=== PATIENT | female | born 1970 | race Caucasian/White ===

== ENCOUNTER 2018-05-02 19:40 | Emergency (ER) | payer OTHER ==
[~2018-05-02] VITALS: Ht 167.6 cm; Wt 86.6 kg
[2018-05-02] MEDS ORDERED: BENADRYL25 MG PO (19:59)
[2018-05-02 21:58] VITALS: BP 164/102
== END 2018-05-02 21:59 | disposition home or self-care (01) ==
LOC: M.ERS 19:40
DX: G43.909 Migraine, unspecified, not intractable, without status migrainosus (principal); F41.9 Anxiety disorder, unspecified; J44.9 Chronic obstructive pulmonary disease, unspecified; F17.210 Nicotine dependence, cigarettes, uncomplicated; Z88.1 Allergy status to other antibiotic agents; Z88.8 Allergy status to other drugs, medicaments and biological substances

== ENCOUNTER 2018-05-08 15:02 | Emergency (ER) | payer OTHER ==
[~2018-05-08] VITALS: Ht 167.6 cm; Wt 86.6 kg
[~2018-05-08 15:02] MED LIST: BENADRYL25 MG PO
[2018-05-08 15:36] LABS: URINE BILIRUBIN NEGATIVE (Negative); URINE BLOOD NEGATIVE (Negative); URINE CLARITY CLEAR; URINE COLOR YELLOW; URINE GLUCOSE-RANDOM NEGATIVE (Negative); URINE KETONES NEGATIVE (Negative); URINE LEUKOCYTES-REFLEX NEGATIVE (Negative); URINE NITRITE-REFLEX NEGATIVE (Negative); URINE PROTEIN NEGATIVE (Negative); URINE SPECIFIC GRAVITY >= 1.030 (1.005-1.030); URINE UROBILINOGEN 0.2 E.U./dl (0.2-1.0)
[2018-05-08] MEDS ORDERED: NORCO 5-325 TA1 EACH PO (15:41)
[2018-05-08 15:57] VITALS: BP 133/97
== END 2018-05-08 16:08 | disposition home or self-care (01) ==
LOC: M.ERS 15:02
PROVIDERS: Physician Assistant
DX: M54.31 Sciatica, right side (principal); F41.9 Anxiety disorder, unspecified; J44.9 Chronic obstructive pulmonary disease, unspecified; F17.210 Nicotine dependence, cigarettes, uncomplicated; Z88.1 Allergy status to other antibiotic agents; Z88.6 Allergy status to analgesic agent; Z88.8 Allergy status to other drugs, medicaments and biological substances

== ENCOUNTER 2018-11-15 19:02 | Emergency (ER) | payer OTHER ==
[~2018-11-15] VITALS: Ht 167.6 cm; Wt 86.2 kg
[~2018-11-15 19:02] MED LIST changes: +NORCO 5-325 TA1 EACH PO
[2018-11-15] MEDS ORDERED: BUTALB-APAP-CA1 EACH PO (20:22)
[2018-11-15 21:08] VITALS: BP 144/102
== END 2018-11-15 21:08 | disposition home or self-care (01) ==
LOC: M.ERS 19:02
DX: R51 Headache (principal); M79.645 Pain in left finger(s); R19.7 Diarrhea, unspecified; F17.200 Nicotine dependence, unspecified, uncomplicated; J44.9 Chronic obstructive pulmonary disease, unspecified; Z88.1 Allergy status to other antibiotic agents; Z88.8 Allergy status to other drugs, medicaments and biological substances

== ENCOUNTER 2019-05-19 16:38 | Emergency (ER) | payer OTHER ==
[~2019-05-19] VITALS: Ht 167.6 cm; Wt 86.2 kg
[~2019-05-19 16:38] MED LIST changes: +BUTALB-APAP-CA1 EACH PO
[2019-05-19 17:05] LABS: ABSOLUTE BASOPHILS 0.1 thou/uL (0.0-0.2); ABSOLUTE EOSINOPHILS 0.2 thou/uL (0.0-0.7); ABSOLUTE LYMPHOCYTES 2.3 thou/uL (0.8-5.3); ABSOLUTE MONOCYTES 0.4 thou/uL (0.0-1.2); ABSOLUTE NEUTROPHILS 4.4 thou/uL (1.6-8.1); BASOPHILS 1.2 %; EOSINOPHILS 2.4 %; HEMOGLOBIN 14.1 gm/dL (12.0-15.0); MCH 29.5 pg (26.0-34.0); MCHC 34.4 g/dL (28.0-37.0); MCV 85.9 fL (80.0-100.0); MONOCYTES 5.9 %; MPV 9.6 fl. (7.2-11.1); NUCLEATED RBCS 0 /100WBC; PLATELET COUNT* 222 thou/uL (150-400); POLYS 59.5 %; RBC 4.78 mil/uL (4.20-5.00); RDW-CV 14.2 % (10.5-14.5); WBC 7.3 thou/uL (4.0-11.0)
[2019-05-19 17:13] LABS: APTT 26.1 Seconds (25.0-31.3); PROTIME 9.8 Seconds (9.20-11.50)
[2019-05-19 17:19] LABS: ANION GAP 10 mmol/L (7-16); BUN 14 mg/dL (7-18); CALCIUM 8.9 mg/dL (8.5-10.1); CHLORIDE 107 mmol/L (98-107); CO2 23 mmol/L (21-32); CREATININE 1.4 mg/dL (0.6-1.3); GLUCOSE 98 mg/dL (70-99); POTASSIUM 3.8 mmol/L (3.5-5.1); SODIUM 140 mmol/L (136-145)
[2019-05-19 17:35] LABS: ALBUMIN 3.4 g/dL (3.4-5.0); ALKALINE PHOSPHATASE 97 U/L (46-116); CK-MB MASS < 0.5 ng/mL (<0.5-3.6); LIPASE 89 U/L (73-393); MAGNESIUM 1.8 mg/dL (1.8-2.4); NT-PRO BRAIN NAT PEPTIDE 78 pg/mL (<300); SGOT 23 U/L (15-37); SGPT 79 U/L (30-65); TOTAL BILIRUBIN 0.3 mg/dL (<0.1-1.0); TOTAL PROTEIN 6.9 g/dL (6.4-8.2)
[2019-05-19] MEDS ORDERED: NORCO 5-325 TA1 EAC1 PO (17:59)
[2019-05-19] MEDS ORDERED: FLEXERIL PO (18:00)
[2019-05-19 18:15] VITALS: BP 135/90
--- NOTE | 2019-05-21 11:15 | EKG ---
[place] [address] ELECTROCARDIOGRAM REPORT Name: ESTEFANIA ZAMARRIPA Room: [facility]#: [id number] Admission: 05/19/19 Attend Phys: Discharge: 05/19/19 Date of : 72 Report #: [id number] THIS REPORT FOR: //name// 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
== END 2019-05-19 18:17 | disposition home or self-care (01) ==
LOC: M.ERS 16:38
PROVIDERS: Family Medicine
DX: R07.89 Other chest pain (principal); J44.9 Chronic obstructive pulmonary disease, unspecified; F41.9 Anxiety disorder, unspecified; Z88.1 Allergy status to other antibiotic agents; Z88.6 Allergy status to analgesic agent; Z88.8 Allergy status to other drugs, medicaments and biological substances; Z90.710 Acquired absence of both cervix and uterus

== ENCOUNTER 2019-06-17 20:23 | Emergency (ER) | payer MEDICARE, OTHER ==
[~2019-06-17] VITALS: Ht 167.6 cm; Wt 88.5 kg
[~2019-06-17 20:23] MED LIST changes: +FLEXERIL PO; +NORCO 5-325 TA1 EAC1 PO
[2019-06-17 20:46] LABS: URINE BILIRUBIN NEGATIVE (Negative); URINE BLOOD NEGATIVE (Negative); URINE CLARITY CLEAR; URINE COLOR YELLOW; URINE GLUCOSE-RANDOM NEGATIVE (Negative); URINE KETONES NEGATIVE (Negative); URINE LEUKOCYTES-REFLEX NEGATIVE (Negative); URINE NITRITE-REFLEX NEGATIVE (Negative); URINE PROTEIN NEGATIVE (Negative); URINE SPECIFIC GRAVITY >= 1.030 (1.005-1.030); URINE UROBILINOGEN 0.2 E.U./dl (0.2-1.0)
[2019-06-17 20:54] LABS: AMP/METHAMP Negative (Negative); BARBITURATES Negative (Negative); BENZODIAZEPINES Negative (Negative); COCAINE Negative (Negative); METHADONE Negative (Negative); OPIATES Negative (Negative); PCP Negative (Negative); THC Negative (Negative)
[2019-06-17 21:10] LABS: ABSOLUTE BASOPHILS 0.1 thou/uL (0.0-0.2); ABSOLUTE EOSINOPHILS 0.2 thou/uL (0.0-0.7); ABSOLUTE LYMPHOCYTES 2.9 thou/uL (0.8-5.3); ABSOLUTE MONOCYTES 0.5 thou/uL (0.0-1.2); ABSOLUTE NEUTROPHILS 3.9 thou/uL (1.6-8.1); BASOPHILS 1.1 %; EOSINOPHILS 2.7 %; HEMOGLOBIN 14.1 gm/dL (12.0-15.0); LYMPHOCYTES 38.1 %; MCH 29.4 pg (26.0-34.0); MCHC 33.6 g/dL (28.0-37.0); MCV 87.5 fL (80.0-100.0); MONOCYTES 6.9 %; MPV 9.4 fl. (7.2-11.1); NUCLEATED RBCS 0 /100WBC; PLATELET COUNT* 238 thou/uL (150-400); POLYS 51.2 %; RDW-CV 14.2 % (10.5-14.5); WBC 7.7 thou/uL (4.0-11.0)
[2019-06-17 21:15] LABS: CALCIUM 8.8 mg/dL (8.5-10.1); CREATININE 0.9 mg/dL (0.6-1.3); POTASSIUM 3.5 mmol/L (3.5-5.1)
[2019-06-17 21:20] LABS: INFLUENZA A ANTIGEN Negative (Negative); INFLUENZA B ANTIGEN Negative (Negative)
[2019-06-17 21:25] LABS: ALBUMIN 3.3 g/dL (3.4-5.0); TOTAL BILIRUBIN 0.2 mg/dL (<0.1-1.0); TOTAL PROTEIN 6.7 g/dL (6.4-8.2)
[2019-06-17] MEDS ORDERED: PHENERGAN 25 MG25 M1 PO (22:23)
[2019-06-17] MEDS ORDERED: HYDROCODON-ACE1 EAC7 PO (22:23)
[2019-06-17] MEDS ORDERED: AZITHROMYCIN 2250 MG PO (22:23)
[2019-06-17 22:55] VITALS: BP 120/90
--- NOTE | 2019-06-19 10:43 | EKG ---
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
== END 2019-06-17 22:55 | disposition home or self-care (01) ==
LOC: M.ERS 20:23
PROVIDERS: Personal Emergency Response Attendant
DX: J40 Bronchitis, not specified as acute or chronic (principal); R10.9 Unspecified abdominal pain; R11.0 Nausea; R19.7 Diarrhea, unspecified; F41.9 Anxiety disorder, unspecified; J44.9 Chronic obstructive pulmonary disease, unspecified; F17.200 Nicotine dependence, unspecified, uncomplicated; Z90.49 Acquired absence of other specified parts of digestive tract; Z90.710 Acquired absence of both cervix and uterus; Z88.1 Allergy status to other antibiotic agents; Z88.8 Allergy status to other drugs, medicaments and biological substances

== ENCOUNTER 2019-07-19 17:28 | Emergency (ER) | payer MEDICARE ==
[~2019-07-19] VITALS: Ht 167.6 cm; Wt 96.2 kg
[~2019-07-19 17:28] MED LIST changes: +AZITHROMYCIN 2250 MG PO; +HYDROCODON-ACE1 EAC7 PO; +PHENERGAN 25 MG25 M1 PO
[2019-07-19] MEDS ORDERED: MOBIC7.5 MG PO (17:46)
[2019-07-19] MEDS ORDERED: RAYOS5 MG PO (17:47)
[2019-07-19] MEDS ORDERED: ZOFRAN4 MG PO (17:47)
[2019-07-19] MEDS ORDERED: TOPROL XL25 MG PO (17:48)
[2019-07-19] MEDS ORDERED: ANXIETY MED (17:48)
[2019-07-19 18:14] LABS: URINE BILIRUBIN NEGATIVE (Negative); URINE BLOOD NEGATIVE (Negative); URINE CLARITY CLEAR; URINE COLOR YELLOW; URINE GLUCOSE-RANDOM NEGATIVE (Negative); URINE KETONES NEGATIVE (Negative); URINE LEUKOCYTES-REFLEX NEGATIVE (Negative); URINE NITRITE-REFLEX NEGATIVE (Negative); URINE PROTEIN 1+ (Negative); URINE SPECIFIC GRAVITY >= 1.030 (1.005-1.030); URINE UROBILINOGEN 0.2 E.U./dl (0.2-1.0)
[2019-07-19 18:15] LABS: HEMATOCRIT 41.5 % (37.0-47.0); HEMOGLOBIN 14.1 gm/dL (12.0-15.0); MCH 29.9 pg (26.0-34.0); MCHC 34.1 g/dL (28.0-37.0); MCV 87.7 fL (80.0-100.0); MPV 8.8 fl. (7.2-11.1); NUCLEATED RBCS 0 /100WBC; PLATELET COUNT* 217 thou/uL (150-400); RBC 4.73 mil/uL (4.20-5.00); RDW-CV 15.1 % (10.5-14.5); WBC 20.8 thou/uL (4.0-11.0)
[2019-07-19 18:26] LABS: INFLUENZA A ANTIGEN Negative (Negative); INFLUENZA B ANTIGEN Negative (Negative)
[2019-07-19 18:30] LABS: CALCIUM 8.4 mg/dL (8.5-10.1); CREATININE 1.2 mg/dL (0.6-1.3)
[2019-07-19 18:40] LABS: ALBUMIN 3.4 g/dL (3.4-5.0); TOTAL BILIRUBIN 0.3 mg/dL (<0.1-1.0); TOTAL PROTEIN 6.9 g/dL (6.4-8.2)
[2019-07-19 18:55] LABS: ABSOLUTE LYMPHOCYTES 1.2 thou/uL (0.8-5.3); ABSOLUTE MONOCYTES 0.2 thou/uL (0.0-1.2); ABSOLUTE NEUTROPHILS 19.3 thou/uL (1.6-8.1); PLATELET ESTIMATE ADEQUATE
[2019-07-19 18:56] LABS: ANISOCYTOSIS Occasional; LARGE PLATELETS RARE
[2019-07-19] MEDS ORDERED: PREDNISONE 20 M20 MG PO (19:07)
[2019-07-19] MEDS ORDERED: FLEXERIL PO (19:08)
[2019-07-19 19:16] VITALS: BP 140/96
--- NOTE | 2019-07-20 17:04 | EKG ---
[place] [address] ELECTROCARDIOGRAM REPORT Name: ESTEFANIA ZAMARRIPA Room: [facility]#: [id number] Admission: 07/19/19 Attend Phys: Discharge: 07/19/19 Date of : 72 Report #: [id number] THIS REPORT FOR: //name// [facility] ED Test Date: 2019-07-19 Test Time: 17:55:35 Pat Name: ESTEFANIA ZAMARRIPA Department: Room: Gender: F Surgery Aide: MINDA : 1970 Requested By: Mehnaz Rust Order Number: [id number] : Dexter Gonzalez Measurements Intervals [place] Rate: 115 P: 48 [place]: 125 QRS: 54 QRSD: 80 T: 50 QT: 314 QTc: 435 Interpretive Statements Sinus tachycardia Compared to ECG 06/17/2019 20:58:28 Sinus rate has increased Electronically Signed On 07-20-2019 17:04:07 LABOR RELATIONS SUPERVISOR by Dexter Gonzalez [email or web address] <ELECTRONICALLY SIGNED> By: Dexter Gonzalez MD, [facility] 07/20/19 1704 1755 1755 Dexter Gonzalez MD, FACC /EPI
== END 2019-07-19 19:16 | disposition home or self-care (01) ==
LOC: M.ERS 17:28
PROVIDERS: Nurse Practitioner Family
DX: J20.8 Acute bronchitis due to other specified organisms (principal); F41.9 Anxiety disorder, unspecified; J44.9 Chronic obstructive pulmonary disease, unspecified; Z90.49 Acquired absence of other specified parts of digestive tract; Z90.710 Acquired absence of both cervix and uterus; Z88.1 Allergy status to other antibiotic agents; Z88.8 Allergy status to other drugs, medicaments and biological substances

== ENCOUNTER 2019-08-27 19:09 | Emergency (ER) | payer MEDICARE ==
[~2019-08-27] VITALS: Ht 167.6 cm; Wt 90.7 kg
[~2019-08-27 19:09] MED LIST changes: +ANXIETY MED; +MOBIC7.5 MG PO; +PREDNISONE 20 M20 MG PO; +RAYOS5 MG PO; +TOPROL XL25 MG PO; +ZOFRAN4 MG PO
[2019-08-27] MEDS ORDERED: NABUMETONE 500500 M1 PO (19:42)
[2019-08-27] MEDS ORDERED: PENICILLIN VK500 MG PO (19:42)
[2019-08-27 19:51] VITALS: BP 140/90
== END 2019-08-27 19:52 | disposition home or self-care (01) ==
LOC: M.ERS 19:09
DX: K04.7 Periapical abscess without sinus (principal); K02.9 Dental caries, unspecified; F41.9 Anxiety disorder, unspecified; J44.9 Chronic obstructive pulmonary disease, unspecified; F17.200 Nicotine dependence, unspecified, uncomplicated; Z88.1 Allergy status to other antibiotic agents; Z90.49 Acquired absence of other specified parts of digestive tract; Z88.8 Allergy status to other drugs, medicaments and biological substances

== ENCOUNTER 2019-09-11 15:20 | Emergency (ER) | payer MEDICARE ==
[~2019-09-11] VITALS: Ht 167.6 cm; Wt 90.7 kg
[~2019-09-11 15:20] MED LIST changes: +NABUMETONE 500500 M1 PO; +PENICILLIN VK500 MG PO
[2019-09-11] MEDS ORDERED: NORCO 5-325 TA1 EAC1 PO (18:50)
[2019-09-11] MEDS ORDERED: MEDROLDOSEPACK PO (18:50)
[2019-09-11] MEDS ORDERED: IBUPROFEN 800800 M1 PO (18:50)
[2019-09-11 19:08] VITALS: BP 130/78
== END 2019-09-11 19:08 | disposition home or self-care (01) ==
LOC: M.ERS 15:20
DX: M54.41 Lumbago with sciatica, right side (principal); J44.9 Chronic obstructive pulmonary disease, unspecified; F41.9 Anxiety disorder, unspecified; F17.210 Nicotine dependence, cigarettes, uncomplicated; Z90.710 Acquired absence of both cervix and uterus; Z90.49 Acquired absence of other specified parts of digestive tract; Z88.1 Allergy status to other antibiotic agents; Z88.8 Allergy status to other drugs, medicaments and biological substances